=== PATIENT | female | born 1995 | race African-American/Black ===

== ENCOUNTER 2017-08-11 23:00 | Emergency (ER) | payer MEDICAID ==
[~2017-08-11] VITALS: Ht 172.7 cm; Wt 95.5 kg
[2017-08-11 23:34] LABS: BASO # 0.1 (0.0-0.2); GRAN # 4.6 (1.4-6.5); GRAN % 42.4 % (42.2-75.2); HEMATOCRIT 38.3 % (35.0-45.0); HEMOGLOBIN 12.8 g/dl (12.0-15.0); LYMPH # 4.4 (1.2-3.4); LYMPH % 40.2 % (20.0-51.0); MEAN CELL VOLUME 84 fl (80.0-95.0); MEAN CORPUSCULAR HEMOGLOBIN 28 pg (26.0-32.0); MEAN CORPUSCULAR HGB CONC 33 g/dl (33.0-37.0); MEAN PLATELET VOLUME 9.3 fl (7.4-10.4); MONO # 0.8 (0.1-0.6); MONO % 7.2 % (1.7-9.3); PLATELET COUNT 544 K/mm3 (130-400); RED BLOOD COUNT 4.58 M/mm3 (4.10-5.30); REDCELL DISTRIBUTION WIDTH-CV 13.7 % (11.5-14.5)
[2017-08-11 23:44] LABS: BILIRUBIN,TOTAL 0.2 mg/dL (0.0-1.0); CREATININE, serum 0.71 mg/dL (0.52-1.25); POTASSIUM 3.5 mmol/L (3.4-5.0)
[2017-08-12] MEDS ORDERED: ZITHROMAX500 M2 PO (01:59)
[2017-08-12] MEDS ORDERED: PROAIR HFA0.09 MG/AC IH (01:59)
[2017-08-12] MEDS ORDERED: PREDNISONE20 MG PO (01:59)
[2017-08-12 02:31] VITALS: BP 115/78; PULSE 104
== END 2017-08-12 02:34 | disposition home or self-care (01) ==
LOC: COL.ER 23:00
PROVIDERS: Emergency Medicine
DX: J45.901 Unspecified asthma with (acute) exacerbation (principal)
CPT/HCPCS: J2930; J3105; J3475; J7030; Q9967

== ENCOUNTER 2017-08-21 12:47 | Emergency (ER) | payer MEDICAID ==
[~2017-08-21] VITALS: Ht 172.7 cm; Wt 63.6 kg
[~2017-08-21 12:47] MED LIST: PREDNISONE20 MG PO; PROAIR HFA0.09 MG/AC IH; ZITHROMAX500 M2 PO
[2017-08-21 12:50] VITALS: TEMP 98.8
[2017-08-21] MEDS ORDERED: PREDNISONE20 MG PO (14:13)
[2017-08-21 14:18] VITALS: PULSE 133
== END 2017-08-21 14:18 | disposition home or self-care (01) ==
LOC: COL.ER 12:47
DX: J45.901 Unspecified asthma with (acute) exacerbation (principal)
CPT/HCPCS: J7512

== ENCOUNTER 2017-11-21 22:16 | Emergency (ER) | payer SELFPAY ==
[~2017-11-21] VITALS: Ht 172.7 cm; Wt 109.1 kg
[2017-11-21 22:20] VITALS: TEMP 98.6
[2017-11-21 23:38] LABS: BASO # 0.1 (0.0-0.2); BASO % 0.6 % (0.0-2.0); EOS % 9.7 % (0-4.0); GRAN # 6.3 (1.4-6.5); GRAN % 59.4 % (42.2-75.2); HEMATOCRIT 36.8 % (37.0-47.0); HEMOGLOBIN 12.2 g/dl (12.5-16.0); LYMPH # 2.5 (1.2-3.4); LYMPH % 23.6 % (20.0-51.0); MEAN CELL VOLUME 85 fl (80.0-100.0); MEAN CORPUSCULAR HEMOGLOBIN 28 pg (27.0-31.0); MEAN CORPUSCULAR HGB CONC 33 g/dl (33.0-37.0); MEAN PLATELET VOLUME 9.2 fl (7.4-10.4); MONO # 0.7 (0.1-0.6); MONO % 6.4 % (1.7-9.3); PLATELET COUNT 465 K/mm3 (130-400); RED BLOOD COUNT 4.31 M/mm3 (4.10-5.30); REDCELL DISTRIBUTION WIDTH-CV 13.5 % (11.5-14.5)
[2017-11-21] MEDS ORDERED: PROAIR HFA0.09 MG/AC IH (23:42)
[2017-11-21] MEDS ORDERED: VENTOLIN0.09 MG IH (23:42)
[2017-11-21 23:51] LABS: ALBUMIN 4.1 gm/dL (3.5-5.0); BILIRUBIN,TOTAL 0.4 mg/dL (0.0-1.0); CALCIUM 8.8 mg/dL (8.4-10.2); CREATININE, serum 0.67 mg/dL (0.52-1.25); POTASSIUM 3.5 mmol/L (3.4-5.0); TOTAL PROTEIN 7.6 gm/dL (6.4-8.2)
[2017-11-22] MEDS ORDERED: PREDNISONE20 MG PO ×2 (00:48)
[2017-11-22] MEDS ORDERED: PROAIR RES117 MCG/Ac IH (00:48)
[2017-11-22] MEDS ORDERED: PREDNISONE10 MG PO (01:01)
[2017-11-22] MEDS ORDERED: FLOVENT 110MCG7.9 GM IH (01:02)
[2017-11-22 01:45] VITALS: BP 125/71; PULSE 111
== END 2017-11-22 01:45 | disposition home or self-care (01) ==
LOC: COL.ER 22:16
PROVIDERS: Emergency Medicine
DX: J45.901 Unspecified asthma with (acute) exacerbation (principal)
CPT/HCPCS: J3475; J7030; J7512

== ENCOUNTER 2017-12-26 09:14 | Emergency (ER) | payer SELFPAY ==
[~2017-12-26] VITALS: Ht 172.7 cm; Wt 100.0 kg
[~2017-12-26 09:14] MED LIST changes: +FLOVENT 110MCG7.9 GM IH; +PREDNISONE10 MG PO; +PROAIR RES117 MCG/Ac IH; +VENTOLIN0.09 MG IH
[2017-12-26 09:31] VITALS: BP 115/75; TEMP 98.9
[2017-12-26] MEDS ORDERED: PREDNISONE20 MG PO (11:28)
[2017-12-26] MEDS ORDERED: PROAIR HFA0.09 MG/AC IH (11:28)
[2017-12-26 11:42] VITALS: PULSE 94
== END 2017-12-26 11:43 | disposition home or self-care (01) ==
LOC: COL.ER 09:14
DX: J45.901 Unspecified asthma with (acute) exacerbation (principal); Z79.51 Long term (current) use of inhaled steroids
CPT/HCPCS: J7512

== ENCOUNTER 2018-01-17 10:14 | Emergency (ER) | payer SELFPAY ==
[2018-01-17 10:16] VITALS: TEMP 96.8
[2018-01-17 10:53] LABS: BASO # 0.1 (0.0-0.2); BASO % 1.3 % (0.0-2.0); EOS # 1.3 (0.0-0.7); EOS % 15.7 % (0-4.0); GRAN # 3.5 (1.4-6.5); GRAN % 41.9 % (42.2-75.2); HEMATOCRIT 38.3 % (37.0-47.0); LYMPH # 2.9 (1.2-3.4); LYMPH % 34.1 % (20.0-51.0); MEAN CELL VOLUME 85 fl (80.0-100.0); MEAN CORPUSCULAR HEMOGLOBIN 29 pg (27.0-31.0); MEAN CORPUSCULAR HGB CONC 34 g/dl (33.0-37.0); MEAN PLATELET VOLUME 9.1 fl (7.4-10.4); MONO # 0.6 (0.1-0.6); MONO % 6.9 % (1.7-9.3); PLATELET COUNT 460 K/mm3 (130-400); RED BLOOD COUNT 4.52 M/mm3 (4.10-5.30); REDCELL DISTRIBUTION WIDTH-CV 12.4 % (11.5-14.5)
[2018-01-17 11:09] LABS: ALBUMIN 4.1 gm/dL (3.5-5.0); BILIRUBIN,TOTAL 0.5 mg/dL (0.0-1.0); CALCIUM 9.5 mg/dL (8.4-10.2); CREATININE, serum 0.76 mg/dL (0.52-1.25); POTASSIUM 3.8 mmol/L (3.4-5.0); TOTAL PROTEIN 7.3 gm/dL (6.4-8.2)
[2018-01-17] MEDS ORDERED: MEDROL 4MG DOSPA4 MG PO (13:25)
[2018-01-17] MEDS ORDERED: SINGULAIR 110 MG/TAB PO (13:44)
[2018-01-17 14:49] VITALS: BP 128/81; PULSE 107
== END 2018-01-17 14:49 | disposition home or self-care (01) ==
LOC: COL.ER 10:14
PROVIDERS: Physician Assistant
DX: J45.901 Unspecified asthma with (acute) exacerbation (principal); F41.9 Anxiety disorder, unspecified; Z79.51 Long term (current) use of inhaled steroids
CPT/HCPCS: J1100; J2060; J3475; J7030

== ENCOUNTER 2018-02-04 13:00 | Emergency (ER) | payer SELFPAY ==
[~2018-02-04] VITALS: Ht 172.7 cm; Wt 104.5 kg
[~2018-02-04 13:00] MED LIST changes: +MEDROL 4MG DOSPA4 MG PO; +SINGULAIR 110 MG/TAB PO
[2018-02-04] MEDS ORDERED: RT ADVAIR 228 DISKUS IH (14:54)
[2018-02-04] MEDS ORDERED: PROAIR HFA0.09 MG/AC IH (14:54)
[2018-02-04] MEDS ORDERED: PREDNISONE20 MG PO (14:54)
[2018-02-04] MEDS ORDERED: SINGULAIR 110 MG/TAB PO (14:54)
[2018-02-04 15:02] VITALS: BP 108/67; PULSE 107; TEMP 98.1
== END 2018-02-04 15:02 | disposition home or self-care (01) ==
LOC: COL.ER 13:00
DX: J45.901 Unspecified asthma with (acute) exacerbation (principal)
CPT/HCPCS: J7512

== ENCOUNTER 2018-03-08 11:25 | Emergency (ER) | payer SELFPAY ==
[~2018-03-08] VITALS: Ht 172.7 cm; Wt 95.5 kg
[~2018-03-08 11:25] MED LIST changes: +RT ADVAIR 228 DISKUS IH
[2018-03-08 11:34] VITALS: BP 125/72; TEMP 98.3
[2018-03-08] MEDS ORDERED: SINGULAIR 110 MG/TAB PO (11:46)
[2018-03-08] MEDS ORDERED: PROAIR HFA0.09 MG/AC IH (11:46)
[2018-03-08] MEDS ORDERED: RT ADVAIR 228 DISKUS IH (11:46)
[2018-03-08] MEDS ORDERED: RT ALBUTER2.5 MG/0.5 IH (11:46)
[2018-03-08] MEDS ORDERED: PREDNISONE20 MG PO (12:31)
[2018-03-08 12:37] VITALS: PULSE 101
== END 2018-03-08 12:38 | disposition home or self-care (01) ==
LOC: COL.ER 11:25
DX: J45.901 Unspecified asthma with (acute) exacerbation (principal)
CPT/HCPCS: J7512

== ENCOUNTER 2018-03-24 17:30 | Emergency (ER) | payer SELFPAY ==
[~2018-03-24] VITALS: Ht 172.7 cm; Wt 97.3 kg
[~2018-03-24 17:30] MED LIST changes: +RT ALBUTER2.5 MG/0.5 IH
[2018-03-24 17:40] VITALS: TEMP 98.1
[2018-03-24] MEDS ORDERED: PREDNISONE20 MG PO (19:30)
[2018-03-24] MEDS ORDERED: IPRATROPIUM BROM3 M1 IH (19:45)
[2018-03-24 20:10] VITALS: BP 98/64; PULSE 109
== END 2018-03-24 20:12 | disposition home or self-care (01) ==
LOC: COL.ER 17:30
DX: J45.901 Unspecified asthma with (acute) exacerbation (principal)
CPT/HCPCS: J7512

== ENCOUNTER 2018-04-08 19:57 | Emergency (ER) | payer SELFPAY ==
[~2018-04-08] VITALS: Ht 172.7 cm; Wt 102.3 kg
[~2018-04-08 19:57] MED LIST changes: +IPRATROPIUM BROM3 M1 IH
[2018-04-08 20:06] VITALS: BP 123/69; TEMP 97.7
[2018-04-08] MEDS ORDERED: ZITHROMAX500 M2 PO (21:47)
[2018-04-08] MEDS ORDERED: PREDNISONE20 MG PO (21:47)
[2018-04-08 22:05] VITALS: PULSE 84
== END 2018-04-08 22:07 | disposition home or self-care (01) ==
LOC: COL.ER 19:57
DX: J45.901 Unspecified asthma with (acute) exacerbation (principal)
CPT/HCPCS: J7512

== ENCOUNTER 2018-05-04 00:21 | Emergency (ER) | payer SELFPAY ==
[~2018-05-04] VITALS: Ht 172.7 cm; Wt 97.3 kg
[2018-05-04 00:25] VITALS: BP 163/60; TEMP 98.4
[2018-05-04] MEDS ORDERED: PREDNISONE20 MG PO (01:22)
[2018-05-04 01:35] VITALS: PULSE 82
== END 2018-05-04 01:35 | disposition home or self-care (01) ==
LOC: COL.ER 00:21
DX: J45.901 Unspecified asthma with (acute) exacerbation (principal)
CPT/HCPCS: J7512

== ENCOUNTER 2018-05-08 11:44 | Emergency (ER) | payer SELFPAY ==
[~2018-05-08] VITALS: Ht 172.7 cm; Wt 97.3 kg
[2018-05-08 11:46] VITALS: TEMP 97.8
[2018-05-08 12:04] LABS: BASO # 0.1 (0.0-0.2); BASO % 1.2 % (0.0-2.0); EOS # 0.8 (0.0-0.7); EOS % 8.7 % (0-4.0); GRAN # 5.1 (1.4-6.5); GRAN % 54.4 % (42.2-75.2); HEMATOCRIT 40.8 % (37.0-47.0); HEMOGLOBIN 13.3 g/dl (12.5-16.0); LYMPH # 2.7 (1.2-3.4); LYMPH % 28.6 % (20.0-51.0); MEAN CELL VOLUME 85 fl (80.0-100.0); MEAN CORPUSCULAR HEMOGLOBIN 28 pg (27.0-31.0); MEAN CORPUSCULAR HGB CONC 33 g/dl (33.0-37.0); MEAN PLATELET VOLUME 9.2 fl (7.4-10.4); MONO # 0.6 (0.1-0.6); MONO % 6.9 % (1.7-9.3); PLATELET COUNT 525 K/mm3 (130-400); RED BLOOD COUNT 4.79 M/mm3 (4.10-5.30); REDCELL DISTRIBUTION WIDTH-CV 13.2 % (11.5-14.5)
[2018-05-08 12:16] LABS: BILIRUBIN,TOTAL 0.5 mg/dL (0.0-1.0); CALCIUM 9.3 mg/dL (8.4-10.2); CREATININE, serum 0.81 mg/dL (0.52-1.25); POTASSIUM 4.1 mmol/L (3.4-5.0); TOTAL PROTEIN 7.2 gm/dL (6.4-8.2)
[2018-05-08] MEDS ORDERED: PREDNISONE20 MG PO (13:51)
[2018-05-08] MEDS ORDERED: RT ADVAIR HFA 2312 G IH (13:51)
[2018-05-08 14:12] VITALS: BP 123/65; PULSE 96
--- NOTE | 2018-05-08 14:35 | NUR ---
SW responded to an ED consult because patient has asthma but no insurance is not able to pay for her medications. PILAR met with patient. Patient reports she was previously a [employer] student but is not anymore and cannot utilize [facility] for primary care. She does have a PCP at the [facility], Dr Ladd. Patient reports she plans to follow up with her. SW inquired about patient not having insurance. Patient reports she had insurance when she lived in [place] but she has not obtained insurance in [place]. She also reports she has been working to apply for Medicaid. SW informed patient that a financial counselor can meet with her while she is in the ER and assist with the medicaid shama. SW also informed patient that she can provide a med voucher for patient to obtain asthma meds but in the future she needs to see her PCP to prescribe her asthma meds. SW informed nurse about med voucher. Nurse will give voucher and scripts to patient when she is discharged.
== END 2018-05-08 14:15 | disposition home or self-care (01) ==
LOC: COL.ER 11:44
PROVIDERS: Emergency Medicine
DX: J45.901 Unspecified asthma with (acute) exacerbation (principal)
CPT/HCPCS: J2930; J7030